=== PATIENT | female | born 2000 | race Caucasian/White ===

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

== ENCOUNTER 2022-04-26 11:21 | Emergency (ER) | payer OTHER ==
--- OUTSIDE RECORDS SUMMARY | 2022-04-26 11:27 | XMS REPORT | Continuity of Care Document ---
:2000 Author Organization [facility] t Address [address] [place] [address] Care Team Providers Name Role Phone Asked, No Pcp Primary Care Physician Unavailable Juvenal TANG, Jaren Nicholas Attending Clinician [phone] Pob1, Acute Care Clinic Attending Clinician Unavailable Duarte QUINTERO, Hoda Sofia Attending Clinician Unavailable Traci Patel Attending Clinician TRACI GRACIA Attending Clinician Unavailable Payers Payer Name Policy Type Policy Number Effective Date Expiration Date S ource Problems Condition Condition Condition Status Onset Resolution Last Treating Co mments Source Name Details Category Date Date Treatment Clinician Date EDS EDS Disease Active Univers (Radha-Da (Radha-Da 10-11 it y of nlos nlos 00:00: [place] syndrome) syndrome) 00 [facility] Mild Mild Disease Active Univers intermitte intermitte 10-11 [place] of nt asthma [place] asthma [place] without 00 Medical complicati complicati Br anch on on Allergies, Adverse Reactions, Alerts Allergy Allergy Status Severity Reaction(s) Onset Inactive Treating Comm ents Source Name Type Date Date Clinician Grass Propensi Active Rash Methodi Pollen ty to 11-06 st adverse 00:00: Hospita reaction 00 l s to drug Penicill Propensi Active Anaphylaxis 2019-0 U nivers ins ty to 10-11 ity of adverse 00:00: [place] reaction 00 Medical s Branch PENICILL Drug Active Anaphylaxis 2019-0 Uni vers INS Class 10-11 ity of 00:00: [place] 00 Medical Branch Penicill Propensi Active Swelling 2019-0 Meth mukul ins ty to 10-11 st adverse 00:00: Hospita reaction 00 l s to drug NO KNOWN Drug Active Univers ALLERGIE Class ity of S [facility] Family History Family Member Diagnosis Comments Start Date Stop Date Source Natural father Cancer [facility] Paternal grandmother Cancer Meth [facility] Social History Social Habit Start Date Stop Date Quantity Comments Source Sex Assigned At Universit y of [facility] History of Occasional tobacco Method ist tobacco use smoker Hospital Alcohol intake 2022-01-07 2022-01-07 Current drinker of [facility] 00:00:00 00:00:00 alcohol (finding) Hospita l Tobacco Comment 2019-10-12 2019-10-12 vape Universit y of 00:00:00 00:00:00 [facility] Smoking Status Start Date Stop Date Source Occasional tobacco smoker 2022-01-07 00:00:00 [facility] Current every day smoker 2019-10-12 00:00:00 Uni versity [facility] Medications Ordered Filled Start Stop Current Ordering Indication Dosage Frequency Signature Comments Components Source Medication Medication Date Date Medication? Clinician (SIG) Name Name etonogestre 2022- No Insert Met hodi L-ethinyl 01-[address] estradioL 00:00: 04:59 and leave Ho spita (NUVARING) 00 :[address] l 0.12-0.015 for 3 mg/24 hr consecutiv vaginal e weeks, ring then remove for 1 week. fluticasone 0 Yes [id number] 1{puff} Inhale 1 Univers propionate 4-03 Puff every ity of (FLOVENT 00:00: 12 [facility]) 220 00 (twelve) Medical mcg/actuati hours. Branch on inhaler albuterol 2019-0 Yes [id number] 2{puff} Inhale 2 Univers 90 4-03 Puffs ity of mcg/actuati 00:00: every 6 Luis as on inhaler 00 (six) Medical hours as Branch needed for Wheezing or Shortness of Breath. fluticasone 2020-0 Yes [id number] 1{puff} Inhale 1 Univers propionate 4-03 Puff every [facility]y [facility] (twelve) Medical mcg/actuati hours. Branch on inhaler albuterol 2019-0 Yes [id number] 2{puff} Inhale 2 Univers 90 4-03 Puffs ity of mcg/actuati 00:00: every 6 Luis as on inhaler 00 (six) Medical hours as Branch needed for Wheezing or Shortness of Breath. fluticasone 2019- Yes [id number] 1{puff} Inhale 1 Univers propionate 4-03 Puff every ity of (FLOVENT 00:00: 12 [place] [facility]) 220 00 (twelve) Medical mcg/actuati hours. Branch on inhaler albuterol 0 Yes [id number] 2{puff} Inhale 2 Univers 90 4-03 Puffs ity of mcg/actuati 00:00: every 6 Luis as on inhaler 00 (six) Medical hours as Branch needed for Wheezing or Shortness of Breath. Vital Signs Vital Name Observation Time Observation Value Comments Source Systolic blood 2019-10-12 21:25:00 123 mm[Hg] Univer sity [facility] [place] [facility] Diastolic blood 2019-10-12 21:25:00 76 mm[Hg] [facility] Heart rate 2019-10-12 21:25:00 84 /min [facility] Body temperature 2019-10-12 21:25:00 36.44 [facility] Respiratory rate 2019-10-12 21:25:00 20 /min [facility] Body height 2019-10-12 21:25:00 172.7 cm [facility] Body weight 2019-10-12 21:25:00 72.576 kg [facility] BMI 2019-10-12 21:25:00 24.33 kg/m2 [facility] Oxygen saturation in 2019-10-12 21:25:00 99 /min [facility] Arterial blood by [facility] Pulse oximetry Branch Systolic blood 2022-01-07 17:11:00 139 mm[Hg] Method ist [facility] pressure Diastolic blood 2022-01-07 17:11:00 78 mm[Hg] Metho dist [facility] pressure Heart rate 2022-01-07 17:11:00 70 /min [facility] Body height 2022-01-07 17:11:00 172.7 cm [facility] Body weight 2022-01-07 17:11:00 78.382 kg [facility] BMI 2022-01-07 17:11:00 26.27 kg/m2 [facility] Procedures Procedure Date / Time Performed Performing Clinician Sourc e CHLAMYDIA/GC, RADHA 2022-01-07 20:31:00 Jaren Cox [facility] Plan of Care Planned Activity Planned Date Details Comments Source Future Scheduled 2022-04-26 HEPATITIS B VACCINES Met [facility] Test 08:52:33 (1 of 3 - 3-dose series) [code = HEPATITIS B VACCINES (1 of 3 - 3-dose series)] Future Scheduled 2022-04-26 COVID-19 VACCINE (#1) [facility] Test 08:52:33 [code = COVID-19 VACCINE (#1)] Future Scheduled 2022-04-26 Pneumococcal Vaccine: [facility] Test 08:52:33 Pediatrics (0 to 5 Years) and At-Risk Patients (6 to 64 Years) (1 - PCV) [code = Pneumococcal Vaccine: Pediatrics (0 to 5 Years) and At-Risk Patients (6 to 64 Years) (1 - PCV)] Future Scheduled 2022-04-26 Hepatitis C screening [facility] Test 08:52:33 (procedure) [code = 250242323] Future Scheduled 2022-04-26 INFLUENZA VACCINE Method [facility] Test 08:52:33 [code = INFLUENZA VACCINE] Future Scheduled 2022-04-26 Screening for [facility] Test 08:52:33 malignant neoplasm of cervix (procedure) [code = 084003779] Future Scheduled 2022-04-26 Screening for [facility] Test 08:52:33 Chlamydia trachomatis (procedure) [code = 029352795] Encounters Start End Encounter Admission Attending Care Care Encounter Source Date/Time Date/Time Type Type Clinicians Facility Department ID 2022-04-26 2022-04-26 Telephone Juvenal [id number] Methodi 00:00:00 00:00:00 Jaren [id number] [facility] 3.430.2.7 Hospit a .[id number] l .8 2022-01-07 2022-01-07 Office Juvenal [id number] Methodi 12:20:00 12:51:22 Visit Jaren Walker50.1.1 493 [facility] 3.430.2.7 Hospit a .[id number] l .8 2022-01-07 2022-01-07 Outpatient JUVENAL, [facility] [id number] 00:00:00 00:00:00 JAREN 493 Metho [place] 2021-01-15 2021-01-15 Outpatient JUVENAL, [facility] [id number] 00:00:00 00:00:00 JAREN 817 Metho di 2021-01-15 2021-01-15 Outpatient JUVENAL, [facility] [id number] 00:00:00 00:00:00 JAREN 675 Metho di 2020-12-12 2020-12-12 Outpatient JUVENAL, [facility] [id number] 00:00:00 00:00:00 JAREN 862 Metho di 2020-11-06 2020-11-06 Outpatient JUVENAL, [facility] [id number] 00:00:00 00:00:00 JAREN 610 Metho di 2019-10-15 2019-10-15 Telephone Pob1, Acute [facility] [id number] [facility] 00:00:00 00:00:00 [facility] [id number] ity of [place] 4.2.7.2.686 Luis as Professio [phone] De dical nal [address] [place] [address] 2019-10-13 2019-10-13 Telephone DARLENE Ramachandran [id number] [facility] 00:00:00 00:00:00 Hoda NUNN [id number] it y of [facility] [id number] Luis as [id number] [address] 2019-10-12 2019-10-12 Urgent Pob1, Acute Care Clinic [facility] [id number]. [id number] [facility] 16:19:38 16:39:38 Traci Carrillo [facility] [id number] ity of [place] [id number] Luis as Professio [phone] De dical nal [address] [facility] 2019-10-12 2019-10-12 Outpatient R SAMIA, [facility] [id number] Univers 16:20:00 16:20:00 TRACI jamison [facility] Results Test Description Test Time Test Comments Results Result Comments Source Chlamydia/GC, RADHA 2022-01-11 22:35:00 Test Item Value Reference Range Interpretation Comme nts Chlamydia trachomatis, RADHA (test code Negative Negative = 29338-7) Neisseria gonorrhoeae, RADHA (test code Negative Negative = 89481-8) THONY (test code = THONY) Performed at: - [facility] [id number] Director: Mainor Ba MD, Phone: [phone] [facility]
[2022-04-26 12:48] LABS: Absolute Lymphocytes (CBC) 2.5 K/uL (0.7-4.9); Hematocrit 38.9 % (36.0-45.0); Lymphocytes % 44.8 % (15.3-44.8); MCV 88.2 fL (80-100); MPV 7.6 fL (7.6-11.3); RBC Red Blood Cell Count 4.42 M/uL (3.86-4.86)
[2022-04-26 12:51] LABS: Urine Blood 1+ (Negative); Urine Glucose Negative (Negative); Urine Protein Negative (Negative); Urine Specific Gravity 1.015 (1.005-1.030)
[2022-04-26 13:07] LABS: BUN Blood Urea Nitrogen 7 mg/dL (7-18); Bicarbonate 29 mmol/L (21-32); Glomerular Filtration Rate 111 ml/min (=/>90); Glucose Level 91 mg/dL (74-106); HCG, Quantitative < 1 mIU/mL (1-3); Potassium 3.6 mmol/L (3.5-5.1); Sodium Level 137 mmol/L (136-145)
[2022-04-26 13:20] LABS: Urine Specific Gravity/Preg 1.015 (1.005-1.030)
--- NOTE | 2022-04-26 13:30 | EDPHYS ---
Physician Documentation [facility] Name: Julieth Becker Age: 22 yrs Sex: Female : 2000 Arrival Date: 04/26/2022 Time: 11:24 Bed 12 Private MD: Melonie Reich ED Physician Melonie Acuna HPI: 04/26 13:27 This 22 yrs old Female presents to ER via Ambulatory with complaints of Vaginal jmm Bleeding. 13:27 The patient presents with vaginal bleeding that is. Onset: The symptoms/episode jmm began/occurred gradually. Modifying factors: The symptoms are alleviated by nothing, the symptoms are aggravated by nothing. Associated signs and symptoms: Pertinent positives: Blood clots. Is a 22-year-old female the presents emerged department with complaints of heavy vaginal bleeding patient states she is gone through a pad every 1-1/2 hours. Also states she is passing blood clots. Patient is currently on NuvaRing for control. Patient was advised to go to the ED due to concern she may have a miscarriage.. 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 13:27 : Positive for vaginal bleeding. 13:27 All other systems are negative. Exam: 13:27 Constitutional: This is a well developed, well nourished patient who is awake, alert, jmm and in no acute distress. Head/Face: atraumatic. Eyes: EOMI, no conjunctival erythema appreciated ENT: Moist Mucus Membranes Neck: Trachea midline, Supple Chest/axilla: Normal chest wall appearance and motion. Cardiovascular: Regular rate and rhythm. No edema appreciated Respiratory: Normal respirations, no respiratory distress appreciated Abdomen/GI: Non distended Back: Normal ROM Skin: General appearance color normal MS/ Extremity: Moves all extremities, no obvious deformities appreciated, no edema noted to the lower extremities Neuro: Awake and alert Psych: Behavior is normal, Mood is normal, Patient is cooperative and pleasant Vital Signs: 12:24 BP 116 / 84; Pulse 81; Resp 16; Temp 98.2; Pulse Ox 100% on R/A; Weight 81.65 kg; iw Height 5 ft. 8 in. (172.72 cm); Pain 7/10; 12:24 Body Mass Index 27.37 (81.65 kg, 172.72 cm) iw MDM: 12:17 Patient medically screened. [facility] 13:29 Data reviewed: vital signs, nurses notes. Counseling: I had a detailed discussion with reji the patient and/or guardian regarding: the historical points, exam findings, and any diagnostic results supporting the discharge/admit diagnosis, the need for outpatient follow up, to return to the emergency department if symptoms worsen or persist or if there are any questions or concerns that arise at home. Refusal of service: The patient/guardian displays adequate decision making capability and despite a detailed discussion of alternatives, benefits, risks, and consequences refuses: Pelvic exam. 04/26 12:17 Order name: CBC with Diff; Complete Time: 12:55 [facility] 04/26 12:17 Order name: Type And Screen; Complete Time: 13:31 [facility] 04/26 12:17 Order name: HCG-Quantitative; Complete Time: 13:10 [facility] 04/26 12:17 Order name: BMP; Complete Time: 13:10 [facility] 04/26 12:52 Order name: Urine Dipstick-Ancillary; Complete Time: 12:52 [facility] 04/26 12:53 Order name: Urine --Ancillary (enter results); Complete Time: 13:20 04/26 12:17 Order name: Urine Dipstick-Ancillary (obtain specimen); Complete Time: 12:42 [facility] 04/26 12:17 Order name: Urine Test (obtain specimen); Complete Time: 12:52 [facility] Administered Medications: No medications were administered Disposition Summary: 04/26/22 13:29 Discharge Ordered Location: Home [facility] Condition: Stable [facility] Diagnosis - Abnormal uterine and vaginal bleeding, unspecified [facility] Followup: [facility] - With: Private Physician - When: 2 - 3 days - Reason: Recheck today's complaints, Continuance of care, Re-evaluation by your physician Discharge Instructions: - Discharge Summary Sheet reji - Abnormal Uterine Bleeding [facility] Forms: - Medication Reconciliation Form [facility] - Thank You Letter reji - Antibiotic Education reji - Prescription Opioid Use reji Addendum: 04/29/2022 03:27 STAFF ATTESTATION STATEMENT: I was immediately available onsite in the emergency s d2 department for consultation in the care of this patient. I did not see or examine this patient. Melonie Acuna MD. Signatures: Dispatcher [employer] EDMS Maik Butler PA PA jmm Williams, Irene, RN RN iw Dunlop, Stephanie, MD MD sd2
--- NOTE | 2022-04-26 13:30 | ER ---
Nurse's Notes [facility] Name: Julieth Becker Age: 22 yrs Sex: Female : 2000 Arrival Date: 04/26/2022 Time: 11:24 Bed 12 Private MD: Melonie Reich Diagnosis: Abnormal uterine and vaginal bleeding, unspecified Presentation: 04/26 12:24 Chief complaint: Patient states: heavy vaginal bleeding since last night , + cramping, iw unsure if , is on Nuvaring. Coronavirus screen: At this time, the client does not indicate any symptoms associated with coronavirus-19. Ebola Screen: Patient negative for fever greater than or equal to 101.5 degrees Fahrenheit, and additional compatible Ebola Virus Disease symptoms Patient denies exposure to infectious person. Patient denies travel to an Ebola-affected area in the 21 days before illness onset. No symptoms or risks identified at this time. Initial Sepsis Screen: Does the patient meet any 2 criteria? No. Patient's initial sepsis screen is negative. Does the patient have a suspected source of infection? No. Patient's initial sepsis screen is negative. Risk Assessment: Do you want to hurt yourself or someone else? Patient reports no desire to harm self or others. Onset of symptoms was April 25, 2022. 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 Denies injuries from another. Nutritional tp1 screening: No deficits noted. Tuberculosis screening: No symptoms or risk factors identified. Fall Risk None identified. Assessment: 12:56 General: Appears in no apparent distress. comfortable, Behavior is calm, cooperative. tp1 Pain: Complains of pain in suprapubic area Pain does not radiate. Pain currently is 7 out of 10 on a pain scale. Quality of pain is described as crampy, Is intermittent. Neuro: Level of Consciousness is awake, alert, obeys commands, Oriented to person, place, time, situation. Cardiovascular: Patient's skin is warm and dry. Respiratory: Airway is patent Respiratory effort is even, unlabored. GI: Abdomen is flat, non-distended, Abd is soft Abdomen is tender to palpation in suprapubic area. : Reports vaginal bleeding that is with clots, 1 pad an hour. EENT: No signs and/or symptoms were reported regarding the EENT system. Derm: Skin is pink, warm \T\ dry. Musculoskeletal: Circulation, motion, and sensation intact. 13:50 Reassessment: Patient appears in no apparent distress at this time. No changes from tp1 previously documented assessment. Patient and/or family updated on plan of care and expected duration. Pain level reassessed. Patient is alert, oriented x 3, equal unlabored respirations, skin warm/dry/pink. Patient is alert/active/playful, equal unlabored respirations, skin warm/dry/pink. Vital Signs: 12:24 BP 116 / 84; Pulse 81; Resp 16; Temp 98.2; Pulse Ox 100% on R/A; Weight 81.65 kg; iw Height 5 ft. 8 in. (172.72 cm); Pain 7/10; 12:24 Body Mass Index 27.37 (81.65 kg, 172.72 cm) iw ED Course: 11:24 Patient arrived in ED. as 11:24 Melonie Reich is Private Physician. as 11:38 [facility] Butler [facility] 11:38 Melonie Acuna MD is Attending Physician. [facility] 12:25 Triage completed. iw 12:41 Arm band placed on. iw 12:41 Initial lab(s) drawn, by al, sent to lab. Inserted saline lock: 22 gauge in right iw antecubital area, using aseptic technique. Blood collected. 12:56 Patient has correct armband on for positive identification. Bed in low position. Call tp1 light in reach. 13:16 Jazmin Hsu, LEON is Primary Nurse. iw 13:44 No provider procedures requiring assistance completed. tp1 14:01 IV discontinued, intact, bleeding controlled, No redness/swelling at site. Pressure tp1 dressing applied. Administered Medications: No medications were administered Medication: 13:44 VIS not applicable for this client. tp1 Outcome: 13:29 Discharge ordered by . [facility] 14:01 Discharged to home ambulatory, with family. tp1 14:01 Condition: good 14:01 Discharge instructions given to patient, Instructed on discharge instructions, follow up and referral plans. Demonstrated understanding of instructions, follow-up care. 14:01 Patient left the ED. tp1 Signatures: Maik Butler PA PA jmm Martinez, Amelia as Williams, Irene, RN RN iw Kym Rondon RN RN tp1
[2022-04-26 14:38] VITALS: BP 116/84; TEMP 98.2; O2SAT 100
== END 2022-04-26 14:01 | disposition home or self-care (01) ==
LOC: ER 11:21
DX: N93.9 Abnormal uterine and vaginal bleeding, unspecified (principal); Z88.0 Allergy status to penicillin
CPT/HCPCS: 36415; 80048; 81003; 81025; 84702; 85025; 86850; 86900; 86901; 99283